=== PATIENT | male | born 1965 | race Caucasian/White ===

== ENCOUNTER 2016-08-15 03:07 | Emergency (ER) | payer MEDICAID, OTHER ==
[2015-04-17 14:20] VITALS: Ht 172.7 cm; Wt 83.9 kg
[~2016-08-15] VITALS: Ht 172.7 cm; Wt 83.9 kg
[2016-08-15 03:07] VITALS: BP 134/69; PULSE 104; RESP 20; TEMP 97.4; O2SAT 99
[2016-08-15] MEDS ORDERED: cefTRIAXone 1 GM VIAL IM ONE (04:15)
[2016-08-15] MEDS ORDERED: AZITHROMYCIN 250 MG TABLET PO ONE (04:15)
[2016-08-15] MEDS ORDERED: LIDOCAINE 2%, 20 ML MDV ONE (04:23)
[2016-08-15] MEDS ORDERED: LIDOCAINE 1%, 20 ML MDV 20 ML ONE (04:25)
[2016-08-15 04:30] LABS: BILIRUBIN,URINE NEGATIVE (NEGATIVE); BLOOD, URINE NEGATIVE (NEGATIVE); CLARITY/URINE SL HAZY (CLEAR); COLOR,URINE YELLOW (YELLOW); GLUCOSE,URINE NEGATIVE (NEGATIVE); KETONES,URINE NEGATIVE (NEGATIVE); LEUKOCYTE ESTERASE ,URINE NEGATIVE (NEGATIVE); NITRITE, URINE NEGATIVE (NEGATIVE); PH,URINE 5.5 (5.0-8.0); PROTEIN URINE TRACE (NEGATIVE); UROBILINOGEN,URINE 0.2 (0.2-1.0)
[2016-08-15] MEDS ORDERED: AZITHROMYCIN 250 MG TABLET ONE (04:32)
[2016-08-15 05:30] VITALS: BP 132/70; PULSE 99; RESP 17; TEMP 97.7; O2SAT 99
== END 2016-08-15 05:30 | disposition home or self-care (01) ==
LOC: SED 03:07
DX: A74.9 Chlamydial infection, unspecified (principal); Z90.89 Acquired absence of other organs; Z98.890 Other specified postprocedural states; Z88.2 Allergy status to sulfonamides; Z88.1 Allergy status to other antibiotic agents
CPT/HCPCS: 81003; 96372; 99283; J0696; J2001; Q0144